=== PATIENT | female | born 1950 | race Caucasian/White ===

== ENCOUNTER 2021-08-30 13:25 | Observation (INO) | payer MEDICARE ==
[~2021-08-30] VITALS: Ht 165.1 cm; Wt 55.9 kg
[~2021-08-30 13:25] MED LIST: ASCO500C9 PO; ASPI325T8 PO; ATEN100T PO; BENA1TAB44 PO; CILO100T PO; GABA-585 PO; OMEG100021 PO; SIMV20TA18 PO; ZINC50TA39 PO; vitamin d PEG
--- NOTE | 2021-08-30 13:54 | EKG ---
[address] [address] Test Date: 2021-08-30 Test Time: 13:41:01 Pat Name: HELIO HOFFMAN Department: Room: Gender: F Epidemiology Internship: ALEXI : 1950 Requested By: CHAZ MONSALVE Order Number: [id number] Reading MD: Kishan Durand Measurements Intervals [place] Rate: 60 P: 62 DE: 150 QRS: 2 QRSD: 74 T: 48 QT: 420 QTc: 420 Interpretive Statements SINUS RHYTHM Electronically Signed On 08-30-2021 18:26:43 [employer]AG MACHINE HELPER by Kishan Durand
[2021-08-30 14:11] LABS: BASO # 0.1 x10^3/uL (0.0-0.2); BASO % 1 % (0-3); EOS # 0.2 x10^3/uL (0.0-0.7); EOS % 1 % (0-3); HEMOGLOBIN 14.8 g/dL (12.0-15.5); LYMPH # 3.4 x10^3/uL (1.0-4.8); LYMPH % 29 % (24-48); MEAN CORPUSCULAR HEMOGLOBIN 31 pg (25-35); MEAN CORPUSCULAR HGB CONC 34 g/dL (31-37); MEAN CORPUSCULAR VOLUME 94 fL (79-100); MONO # 0.6 x10^3/uL (0.0-1.1); MONO % 5 % (0-9); NEUT # 7.3 x10^3uL (1.8-7.7); NEUT % 63 % (31-73); PLATELET COUNT 277 x10^3/uL (140-400); RED CELL DISTRIBUTION WIDTH 13.7 % (11.5-14.5); WHITE BLOOD COUNT 11.5 x10^3/uL (4.0-11.0)
--- NOTE | 2021-08-30 14:17 | RAD ---
CT HEAD/BRAIN WO dated 08/30/2021 1:56 PM. Comparison: None. Clinical Indication: Reason: transient visual changes / Spl. Instructions: / History: Technical factors: Contiguous 5 mm axial images of the head were obtained from the skullbase to the vertex. No contrast was administered. Findings: There is no apparent intracranial mass, hemorrhage or abnormal extra-axial fluid collection. There ap pear to be some areas of volume loss in the occipital lobes likely indicating areas of previous ische irene injury. Patchy low density in the cerebral white matter likely relates to small vessel chronic is chemic change. No other area of abnormal density is identified. Ventricles and basilar cisterns are n ormally positioned. There is minimal mucosal thickening in the ethmoid air cells. The sinuses and mas toid air cells are otherwise clear. Impression: No acute abnormality. Electronically signed by: Dakota Lehman Jr., MD (08/30/2021 2:15 PM) [facility]
[2021-08-30 14:19] LABS: CALCIUM 9.4 mg/dL (8.5-10.1); POTASSIUM 4.3 mmol/L (3.5-5.1)
--- NOTE | 2021-08-30 14:24 | RAD ---
EXAM: Chest, single view. HISTORY: Altered mental status. COMPARISON: None. FINDINGS: A frontal view of the chest is obtained. There is diffuse increased interstitial opacity li omar due to chronic interstitial change with superimposed lower lobe predominant atelectasis. There i s no consolidation, pleural effusion or pneumothorax. The heart is normal in size. There is a small o pacity overlying the right upper lobe. IMPRESSION: 1. Suspected chronic diffuse interstitial changes with bilateral lower lobe atelectasis. 2. Small nodular opacity along the right upper lobe, possibly due to infiltrate or scarring. Short-te rm radiographic follow-up is recommended to exclude a noncalcified nodule in this location. Electronically signed by: Katelyn Collazo MD (08/30/2021 2:22 PM) [id number]
[2021-08-30 14:32] LABS: ALBUMIN 3.7 g/dL (3.4-5.0); ALBUMIN/GLOBULIN RATIO 1.2 (1.0-1.7); TOTAL BILIRUBIN 0.3 mg/dL (0.2-1.0); TOTAL PROTEIN 6.9 g/dL (6.4-8.2)
--- NOTE | 2021-08-30 15:41 | PHYS DOC ---
Past History Past Surgical History: No Surgical History Alcohol Use: None Adult General Chief Complaint Chief Complaint: HYPERTENSION HPI HPI Patient is a 71 year old female who presents with visual changes. Patient reports for the past week she has had transient episodes of blurred vision with lightheadedness. These episodes have been lasting for a few seconds and then r esolving completely, occurring a few times per day, but in recent days frequency and duration have been increasing, sometimes lasting several minutes. She has to sit down when this occurs because she feels lightheaded. She denies any current symptoms. She denies any associated speech changes, numbness, weakness, chest pain, or shortness of breath. 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 She is scheduled to have cataract surgery on Wednesday but states these symptoms aren't typical of her cataract symptoms. PCP is Dr. Velazquez. Review of Systems Review of Systems Constitutional: Denies fever or chills Eyes: Reports blurred vision HENT: Denies nasal congestion or sore throat Respiratory: Denies cough or shortness of breath Cardiovascular: Denies chest pain GI: Denies abdominal pain, nausea, vomiting, or diarrhea : Denies dysuria or hematuria Musculoskeletal: Denies back pain or joint pain Integument: Denies rash or skin lesions Neurologic: Denies headache, focal weakness or sensory changes Endocrine: Denies polyuria or polydipsia All other systems were reviewed and found to be within normal limits, except as documented in this note. Allergies Allergies Allergies Coded Allergies Type Severity Reaction Last Updated Verified No Known Drug Allergies 08/26/21 No Physical Exam Physical Exam Constitutional: Well developed, well nourished, no acute distress, non-toxic appearance. HENT: Normocephalic, atraumatic, bilateral external ears normal, oropharynx moist, no oral exudates, nose normal. Eyes: PERRLA, EOMI, conjunctiva normal, no discharge. Neck: No nuchal rigidity, no carotid bruit Cardiovascular: Regular rate and rhythm, no murmurs. Lungs & Thorax: Lungs clear to auscultation bilaterally, no wheezing, no res piratory distress. Abdomen: Soft, nontender, nondistended. Skin: Warm, dry, no erythema, no rash. Back: No tenderness, no CVA tenderness. Extremities: No tenderness, no edema, distal pulses palpable in upper & lower extremities. [] Neurologic: Alert and oriented X 3, cranial nerves 2-12 grossly intact, symmetric strength/sensation to upper and lower extremities. Psychologic: Affect normal Current Patient Data Vital Signs Vital Signs Date Time Temp Pulse Resp B/P (MAP) Pulse Ox O2 Delivery O2 Flow Rate FiO2 08/30/21 13:25 65 16 123/83 (96) 98 Room Air 08/30/21 13:25 98.2 Lab Results Laboratory Tests Test 08/30/21 13:52 White Blood Count 11.5 x10^3/uL (4.0-11.0) H Red Blood Count 4.70 x10^6/uL (3.50-5.40) Hemoglobin 14.8 g/dL (12.0-15.5) Hematocrit 44.0 % (36.0-47.0) Mean Corpuscular Volume 94 fL (79-100) Mean Corpuscular Hemoglobin 31 pg (25-35) Mean Corpuscular Hemoglobin Concent 34 g/dL (31-37) Red Cell Distribution Width 13.7 % (11.5-14.5) Platelet Count 277 x10^3/uL (140-400) Neutrophils (%) (Auto) 63 % (31-73) Lymphocytes (%) (Auto) 29 % (24-48) Monocytes (%) (Auto) 5 % (0-9) Eosinophils (%) (Auto) 1 % (0-3) Basophils (%) (Auto) 1 % (0-3) Neutrophils # (Auto) 7.3 x10^3uL (1.8-7.7) Lymphocytes # (Auto) 3.4 x10^3/uL (1.0-4.8) Monocytes # (Auto) 0.6 x10^3/uL (0.0-1.1) Eosinophils # (Auto) 0.2 x10^3/uL (0.0-0.7) Basophils # (Auto) 0.1 x10^3/uL (0.0-0.2) Prothrombin Time 10.1 SEC (9.4-11.4) Prothrombin Time INR 1.0 (0.9-1.1) Activated Partial Thromboplast Time 28 SEC (23-33) Sodium Level 140 mmol/L (136-145) Potassium Level 4.3 mmol/L (3.5-5.1) Chloride Level 103 mmol/L (98-107) Carbon Dioxide Level 27 mmol/L (21-32) Anion Gap 10 (6-14) Blood Urea Nitrogen 18 mg/dL (7-20) Creatinine 1.0 mg/dL (0.6-1.0) Estimated GFR (Cockcroft-Gault) 55.0 BUN/Creatinine Ratio 18 (6-20) Glucose Level 111 mg/dL (70-99) H Calcium Level 9.4 mg/dL (8.5-10.1) Total Bilirubin 0.3 mg/dL (0.2-1.0) Aspartate Amino Transferase (AST) 10 U/L (15-37) L Alanine Aminotransferase (ALT) 22 U/L (14-59) Alkaline Phosphatase 110 U/L (46-116) Troponin I High Sensitivity 9 ng/L (4-50) FA-Opu-R-Type Natriuretic Peptide 205 pg/mL (0-124) H Total Protein 6.9 g/dL (6.4-8.2) Albumin 3.7 g/dL (3.4-5.0) Albumin/Globulin Ratio 1.2 (1.0-1.7) EKG EKG interpreted by me: normal sinus rhythm rate 60, no acute ST/T wave changes, T wave inversions lead V1, normal intervals, no ectopy.[] Radiology/Procedures Radiology/Procedures PROCEDURE: CHEST AP ONLY EXAM: Chest, single view. HISTORY: Altered mental status. COMPARISON: None. FINDINGS: A frontal view of the chest is obtained. There is diffuse increased interstitial opacity likely due to chronic interstitial change with superimposed lower lobe predominant atelectasis. There is no consolidation, pleural effusion or pneumothorax. The heart is normal in size. There is a small opacity overlying the right upper lobe. IMPRESSION: 1. Suspected chronic diffuse interstitial changes with bilateral lower lobe atelectasis. 2. Small nodular opacity along the right upper lobe, possibly due to infiltrate or scarring. Short-term radiographic follow-up is recommended to exclude a noncalcified nodule in this location. Electronically signed by: Katelyn Calles MD (08/30/2021 2:22 PM) [id number] DICTATED AND SIGNED BY: KATELYN CALLES MD DATE: 03/12/22 1420 PROCEDURE: CT HEAD WO CONTRAST CT HEAD/BRAIN WO dated 08/30/2021 1:56 PM. Comparison: None. Clinical Indication: Reason: transient visual changes / Spl. Instructions: / History: Technical factors: Contiguous 5 mm axial images of the head were obtained from the skullbase to the vertex. No contrast was administered. Findings: There is no apparent intracranial mass, hemorrhage or abnormal extra-axial fluid collection. There appear to be some areas of volume loss in the occipital lobes likely indicating areas of previous ischemic injury. Patchy low density in the cerebral white matter likely relates to small vessel chronic ischemic change. No other area of abnormal density is identified. Ventricles and basilar cisterns are normally positioned. There is minimal mucosal thickening in the ethmoid air cells. The sinuses and mastoid air cells are otherwise clear. Impression: No acute abnormality. Electronically signed by: Lori Lehman Jr., MD (08/30/2021 2:15 PM) [facility] DICTATED AND SIGNED BY: LORI LEHMAN Jr, MD DATE: 08/30/21 1413[] Heart Score C/O Chest Pain: No Risk Factors: Risk Factors: DM, Current or recent (<one month) smoker, HTN, HLP, family history of CAD, obesity. Risk Scores: Risk Factors: DM, Current or recent (<one month) smoker, HTN, HLP, family history of CAD, obesity. Course & Med Decision Making Course & Med Decision Making Pertinent Labs and Imaging studies reviewed. (See chart for details) The patient presents with transient visual changes that are increasing in frequency/duration. Imaging & labs unremarkable. Unclear whether this is presyncope, acute cardiac or neurologic process. No episodes while she was here in the ED. She remained in stable condition with no symptoms. Recommend admission for ongoing monitoring, neuro evaluation. Patient agrees. Discussed with Dr. Velazquez who agrees to admit to telemetry. Consult to Dr. Garcia. Patient admitted in stable condition. Dragon Disclaimer Dragon Disclaimer This electronic medical record was generated, in whole or in part, using a voice recognition dictation system. Departure Departure: Impression: Primary Impression: Vision changes Disposition: ADMITTED INPATIENT Admitting Physician: Hali Velazquez Condition: GUARDED Referrals: HALI VELAZQUEZ MD (PCP) CHAZ MONSALVE MD Aug 30, 2021 15:41
[2021-08-30 16:16] LABS: BACTERIA,URINE 0 /HPF (0-FEW); CLARITY,URINE CLEAR; COLOR,URINE YELLOW; GLUCOSE,URINE NEG (NEG); NITRITE,URINE NEG (NEG); RBC,URINE 0 /HPF (0-2); SQUAMOUS EPITHELIAL CELL,UR OCC /LPF; UROBILINOGEN,URINE 0.2 mg/dL (0.2 mg/dL); WBC,URINE 0 /HPF (0-4)
[2021-08-30] MEDS ORDERED: ASPIRIN 325 MG TABLET PO ONE (17:15)
[2021-08-30 17:33] VITALS: BP 147/82
[2021-08-30 21:10] VITALS: BP 153/72
[2021-08-30] MEDS ORDERED: SIMVASTATIN 20 MG TABLET PO SCH (22:00)
[2021-08-30] MEDS: CILOSTAZOL 50 MG TABLET. PO SCH (22:11)
[2021-08-30] MEDS: GABAPENTIN 100 MG CAPSULE. PO SCH (22:11)
[2021-08-30] MEDS ORDERED: ZOLPIDEM 5 MG TABLET. PO PRN (22:30)
[2021-08-30] MEDS ORDERED: ACETAMINOPHEN 500 MG TABLET PO PRN (22:30)
[2021-08-30 23:55] VITALS: BP 156/85
--- NOTE | 2021-08-31 03:00 | NUR ---
Daylight saving time: The time discrepancy is due to the daylight saving time change.
--- NOTE | 2021-08-31 03:56 | NUR ---
Nursing note: Pt daughter called the unit multiple times throughout the shift. Daughter highly anxious and fixated on covid swab; did not want mother to have covid swab, expressed frustration about visitation while PCR is pending. Daughter was upset that covid swab not performed in ED. Daughter spoke to this RN, Ca, fish housekeeper, and Jess, charge account clerk. Pt reported no episodes of visual changes through shift. VS as noted in chart. PCR completed and sent to lab per protocol.
[2021-08-31 05:55] VITALS: BP 115/67
--- NOTE | 2021-08-31 06:49 | NUR ---
Patient arrived to the unit at approx 1730 via ems from er. Patients was with the pt at the time of arrival to the unit. Miscommunication however between this nurse and the ER as they were under the impression they could visit at that time and explained to the pt and the family that the pt was in isolation until covid pcr was returned. Pt was oriented to the room, staff and policies at this time and states understanding. Dr. Blackwell notified of admission. Verified home medications and property assessment monitor placed on the pt. Pt denies any pain at this time and no further visual changes since arriving to the floor. Will continue to monitor.
[2021-08-31] MEDS ORDERED: ATENOLOL 50 MG TABLET PO SCH (09:00)
[2021-08-31] MEDS ORDERED: OMEGA-3 FATTY ACIDS/FISH OIL 1,000 MG CAPSULE. PO SCH (09:00)
[2021-08-31] MEDS ORDERED: ASCORBIC ACID 500 MG TABLET PO SCH (09:00)
[2021-08-31] MEDS ORDERED: LISINOPRIL 20 MG TABLET PO SCH (09:00)
[2021-08-31] MEDS ORDERED: ZINC SULFATE 220 MG CAPSULE. PO SCH (09:00)
[2021-08-31] MEDS ORDERED: CHOLECALCIFEROL (VITAMIN D3) 1,000 UNIT TABLET PO SCH (09:00)
[2021-08-31] MEDS ORDERED: hydroCHLOROthiazide 25 MG TABLET. PO SCH (09:00)
[2021-08-31] MEDS ORDERED: ASPIRIN 325 MG TABLET PO SCH (09:00)
[2021-08-31] MEDS: GABAPENTIN 100 MG CAPSULE. PO SCH ×2 (09:18→12:55)
[2021-08-31] MEDS: CILOSTAZOL 50 MG TABLET. PO SCH (09:30)
[2021-08-31 11:48] VITALS: BP 124/71
[2021-08-31] MEDS ORDERED: NICOTINE 21MG PATCH. TD SCH (12:00)
[2021-08-31] MEDS ORDERED: NICOTINE 21MG PATCH. TD PRN (12:00)
[2021-08-31] MEDS ORDERED: IOHEXOL 350 MG/ML 100 ML VIAL. IV ONE (14:15)
[2021-08-31 15:57] VITALS: BP 124/75
--- NOTE | 2021-08-31 16:15 | RAD ---
CTA of the head and neck with contrast 08/31/2021 Clinical history: Dizziness and visual changes. Technique: After the intravenous administration of 100 cc of Omnipaque 350, contiguous, 0.625 mm axia l sections were obtained through the upper chest, neck and head. Multiplanar 3-D MIP and volume rende red 3-D reconstructed images were obtained. One or more of the following individualized dose reduction techniques were utilized for this study: 1. Automated exposure control. 2. Adjustment of the mA and/or kV according to patient size. 3. Use of iterative reconstruction technique. Findings: Comparison is made to patient's CT scan of the head 08/30/2021. Moderate atheromatous/atherosclerotic plaque formation is seen involving the thoracic aortic arch and its branches. The origins of the brachiocephalic, left common carotid and left subclavian arteries f rom the thoracic aortic arch are patent. The origin of the right common carotid artery is patent. The origin of the right vertebral artery is somewhat obscured due to the calcified plaque in the area. I t is grossly patent. The left vertebral artery appears to be occluded at its origin. The common carotid arteries are tortuous bilaterally but patent. Moderate atheromatous/atheroscleroti c plaque formation is seen involving both carotid bifurcations and proximal internal carotid arteries . No hemodynamically significant stenosis is seen. The internal carotid arteries within the neck are tortuous but patent. The right vertebral artery is dominant. The left vertebral artery reconstitutes via collateral arteri al flow to the level of the C6 vertebrae. It is patent throughout the mid/superior neck. Intracranially, scattered atherosclerotic plaque formation is seen involving the cavernous portions o f both internal carotid arteries. No hemodynamically significant stenosis or area of occlusion is see n. The basilar artery is patent. The anterior, middle and posterior cerebral arteries and their branc hes are within normal limits. No area of stenosis or occlusion is seen. No intracranial aneurysm is n oted. The major dural venous sinuses are patent. No area of abnormal contrast enhancement is seen. No acute soft tissue abnormality is seen involving the neck. Moderate emphysematous changes are seen involvin g the visualized lungs. Degenerative changes are seen involving the uncovertebral and facet joints th roughout the cervical disc spaces. Impression: 1. Moderate atheromatous/atherosclerotic plaque formation is seen involving both carotid bifurcations . No hemodynamically significant stenosis is seen. 2. The left vertebral artery is occluded at its origin. It reconstitutes at the C6 level. 3. No intracranial stenosis or area of occlusion is seen. Stenosis calculation for CTA are based on measurement of the distal internal carotid artery diameter in accordance with the NASCET methodology. Electronically signed by: Abdias Iverson MD (08/31/2021 4:13 PM) [id number]
--- NOTE | 2021-08-31 16:46 | NUR ---
DISCHARGE NOTE PT IV WAS D/C'D. PT WAS GIVEN DISCHARGE INSTRUCTIONS AND SIGNED PAPERWORK. PT WILL FOLLOW UP WITH DR. GARCÍA IN OFFICE. CT SCANS REVIEWED WITH PT AT BEDSIDE. MEDICATIONS GIVEN TO PT TO TAKE HOME AND ALL BELONGINGS SENT HOME. AT BEDSIDE TO DRIVE PT HOME. PT IS DISCHARGED FROM HOSPITAL.
== END 2021-08-31 16:49 | disposition home or self-care (01) ==
LOC: ER 13:25 → UNDOADMOB 15:20 → ER HOLD 15:20 → INTOOBSV 15:28 → ER HOLD 15:28 → 1 SOUTH 16:44
PROVIDERS: ADMIT Family Medicine; ATTEND Family Medicine
DX: H53.9 Unspecified visual disturbance (principal); Z20.822 Contact with and (suspected) exposure to COVID-19; I10 Essential (primary) hypertension; R42 Dizziness and giddiness; Z86.73 Personal history of transient ischemic attack (TIA), and cerebral infarction without residual deficits
CPT/HCPCS: 36415; 70450; 70496; 70498; 71045; 80053; 81001; 83880; 84484; 85025; 85610; 85730; 93005; 99285; G0378; G0379; Q9967; U0003